=== PATIENT | male | born 1955 ===

== ENCOUNTER 2017-10-03 16:34 | Emergency (ER) | payer MEDICAID ==
--- NOTE | 2017-10-03 18:27 | ED PDOC ---
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 Patient offers no other medical complaints. PMD: non provided Past Medical History Reviewed: Historical Data, Nursing Documentation, Vital Signs Vital Signs: Last Vital Signs Temp 98.8 F 10/03/17 16:37 Pulse 74 10/03/17 16:37 Resp 20 10/03/17 16:37 BP 122/91 H 10/03/17 16:37 Pulse Ox 100 10/03/17 16:37 - Medical History PMH: No Chronic Diseases - Surgical History Other surgeries: Right upper extremity amputation - Social History Current smoker - smoking cessation education provided: No Alcohol: None Drugs: Denies - Immunization History Hx Tetanus Toxoid Vaccination: No Hx Influenza Vaccination: No Hx Pneumococcal Vaccination: No - Allergies Allergies/Adverse Reactions: Allergies Allergy/AdvReac Type Severity Reaction Status Date / Time No Known Allergies Allergy Verified 10/03/17 16:39 Review of Systems ROS Statement: Except As Marked, All Systems Reviewed And Found Negative Musculoskeletal: Positive for: Other (Right rib pain) Physical Exam - Reviewed Nursing Documentation Reviewed: Yes Vital Signs Reviewed: Yes - Physical Exam Appears: Positive for: Non-toxic, No Acute Distress Head Exam: Positive for: ATRAUMATIC, NORMOCEPHALIC Skin: Positive for: Normal Color, Warm, Dry Cardiovascular/Chest: Positive for: Regular Rate, Rhythm. Negative for: Murmur Respiratory: Positive for: Normal Breath Sounds. Negative for: Respiratory Distress Extremity: Positive for: Tenderness (Right lateral mid ribs). Negative for: Deformity, Other (Ecchymosis) Neurologic/Psych: Positive for: Alert, Oriented - ECG O2 Sat by Pulse Oximetry: 100 (RA) Pulse Ox Interpretation: Normal Medical Decision Making Medical Decision Making: Time: 1800 Initial Impression: Rib contusion/fracture. Initial Plan: --Ribs and Chest X-Ray --Motrin 600 mg PO Scribe Attestation: Documented by Nadeen Cedillo, acting as a scribe for Daphne Reed MD. Provider Scribe Attestation: All medical record entries made by the Scribe were at my direction and personally dictated by me. I have reviewed the chart and agree that the record accurately reflects my personal performance of the history, physical exam, medical decision making, and the department course for this patient. I have also personally directed, reviewed, and agree with the discharge instructions and disposition. Disposition - Disposition Condition: STABLE Forms: [employer] ([employer])
[2017-10-03 20:40] VITALS: BP 128/78; PULSE 88; RESP 18; TEMP 98.2; O2SAT 98
--- NOTE | 2017-10-04 11:31 | RAD ---
PROCEDURE: Radiographs of the Chest and Right Ribs. HISTORY: R rib contusion COMPARISON: None available. TECHNIQUE: Frontal radiograph of the chest and multiple oblique radiographs of the right ribs were obtained. FINDINGS: RIGHT RIBS: No displaced rib fracture appreciated along the right rib series. LUNGS: Bilateral interstitial pulmonary disease is suggested. PLEURA: No pneumothorax or pleural fluid. CARDIOVASCULAR: Cardiac size may CB sensory right frontal technique and rotation to the left. A right hilar mass is not excluded and follow-up chest CT with intravenous contrast is strongly advised. OTHER FINDINGS: Embolic material is seen at the right supraclavicular fossa/ subclavian region status post right shoulder amputation. IMPRESSION: 1. No definite right rib fracture appreciated or destructive bony lesion. 2. A right hilar mass is suspected. Follow-up chest CT with contrast is advised. Interstitial pulmonary disease is question bilaterally. 3. Prior right shoulder amputation with embolic material suggested at the right subclavian/supraclavicular fossa region. Findings discussed with Mayra MONTES 10/04/2017 11:25 a.m. with written down and read back verification. JYOTI review assigned.
== END 2017-10-03 20:20 | disposition home or self-care (01) ==
LOC: H.ER 16:34
DX: S20.211A Contusion of right front wall of thorax, initial encounter (principal); W22.8XXA Striking against or struck by other objects, initial encounter; Y92.89 Other specified places as the place of occurrence of the external cause; H54.61 Unqualified visual loss, right eye, normal vision left eye

== ENCOUNTER 2017-11-01 07:55 | Emergency (ER) | payer MEDICAID ==
[2017-11-01 08:01] VITALS: BMI 22.6
[2017-11-01 08:03] VITALS: O2SAT 99
--- NOTE | 2017-11-01 08:37 | ED PDOC ---
HPI: General Adult Time Seen by Provider: 11/01/17 08:00 Chief Complaint (Nursing): Chest Pain Chief Complaint (Provider): left life port area pain History Per: Patient History/Exam Limitations: no limitations Onset/Duration Of Symptoms: Days (1) Additional Complaint(s): Pt. with left life port inserted by Dr. Oh (IR) on 10/25/17. States it is painful and swollen. Denies any dc from the area. No fever, cough, runny nose , nasal congestion, chest pain, weakness, dizziness, headaches. Put in so he can get chemo. Did not take any meds for it. Does not take any meds as he does not believe in meds. Past Medical History Reviewed: Historical Data, Nursing Documentation, Vital Signs Vital Signs: Last Vital Signs Temp 98.1 F 11/01/17 08:02 Pulse 92 H 11/01/17 08:02 Resp 16 11/01/17 08:02 BP 119/68 11/01/17 08:02 Pulse Ox 99 11/01/17 08:37 - Medical History PMH: Asthma, Diabetes, Fractures, HTN, Chronic Kidney Disease Denies: HIV Other PMH: Renal CA with now mets to lungs - Surgical History Surgical History: Cholecystectomy Other surgeries: R arm amputation - Family History Family History: States: Unknown Family Hx - Immunization History Hx Tetanus Toxoid Vaccination: No Hx Influenza Vaccination: No Hx Pneumococcal Vaccination: No - Home Medications Home Medications: Ambulatory Orders Medication Instructions Recorded Lidocaine 5% [Lidoderm] 1 ea TD DAILY #30 patch 10/25/17 oxyCODONE/Acetaminophen [Percocet 1 tab PO Q4 PRN #30 tab 10/25/17 5/325 mg Tab] - Allergies Allergies/Adverse Reactions: Allergies Allergy/AdvReac Type Severity Reaction Status Date / Time No Known Allergies Allergy Verified 10/03/17 16:39 Review of Systems Constitutional: Negative for: Fever, Weakness ENT: Negative for: Nose Discharge, Nose Congestion, Throat Pain Cardiovascular: Negative for: Chest Pain, Light Headedness Respiratory: Negative for: Cough, Shortness of Breath, Sputum Gastrointestinal: Negative for: Nausea, Vomiting, Abdominal Pain Musculoskeletal: Negative for: Neck Pain, Shoulder Pain, Arm Pain, Back Pain, Hand Pain Skin: Negative for: Rash Neurological: Negative for: Weakness, Numbness Physical Exam - Reviewed Nursing Documentation Reviewed: Yes Vital Signs Reviewed: Yes - Physical Exam Appears: Positive for: Well, Non-toxic, No Acute Distress Head Exam: Positive for: ATRAUMATIC, NORMAL INSPECTION, NORMOCEPHALIC Skin: Negative for: Rash Eye Exam: Positive for: EOMI, Normal appearance, PERRL ENT: Positive for: Normal ENT Inspection Neck: Positive for: Normal, Painless ROM, Supple Cardiovascular/Chest: Positive for: Regular Rate, Rhythm. Negative for: Chest Non Tender (Left chest toward lateral with life port; scabbed wound; no erythema , dc, fluctuance, or swelling; mild tender on deep palpation), Edema Respiratory: Positive for: CNT, Normal Breath Sounds Gastrointestinal/Abdominal: Positive for: Normal Exam, Soft. Negative for: Tenderness Back: Positive for: Normal Inspection. Negative for: L CVA Tenderness, R CVA Tenderness Extremity: Positive for: Other (R arm amputation). Negative for: Tenderness Neurologic/Psych: Positive for: Alert, Oriented - ECG O2 Sat by Pulse Oximetry: 99 Pulse Ox Interpretation: Normal - Progress ED Course And Treament: 846: Stable. AAOx3. Spoke with Dr. Oh. Does not want further testing. Pt. with no appearance of infection on wound for life port. Pt. refusing any pain meds or any medications. Will dc and fu with pcp. Disposition - Clinical Impression Clinical Impression: Encounter for evaluation of wound - Patient ED Disposition Is Patient to be Admitted: No Counseled Patient/Family Regarding: Diagnosis, Need For Followup - Disposition Referrals: [facility] [place] [Outside] - 11/02/17 Disposition: Routine/Home Disposition Time: 08:48 Condition: STABLE Additional Instructions: Return if not redness, pain, swelling to the site. Instructions: Wound Care (DC)
[2017-11-01 09:03] VITALS: BP 121/68; PULSE 85; RESP 14; TEMP 98
== END 2017-11-01 09:03 | disposition home or self-care (01) ==
LOC: H.ER 07:55
DX: R07.89 Other chest pain (principal)